=== PATIENT | male | born 1960 | race Caucasian/White ===

== ENCOUNTER → 2018-04-28 | Outpatient (CLI) | payer OTHER ==
[~2018-04-28] MED LIST: ANTIBIOTIC; HYDROCODONE-AP1 EAC6 PO; MEDROLDOSEPACK PO; NOHOMEMEDICATIONS; NORCO 5-325 TA1 EACH PO; ROBAXIN 750 MG750 M1 PO
== END ==
LOC: M.RAD 12:00
DX: J96.21 Acute and chronic respiratory failure with hypoxia (principal); G47.30 Sleep apnea, unspecified

== ENCOUNTER 2021-05-01 02:28 | Inpatient (IN) | payer OTHER ==
[~2021-05-01] VITALS: Ht 167.6 cm; Wt 77.1 kg
[2021-05-01 02:40] VITALS: BP 98/74
[2021-05-01 02:59] LABS: ABSOLUTE EOSINOPHILS 0.2 thou/uL (0.0-0.7); ABSOLUTE LYMPHOCYTES 1.1 thou/uL (0.8-5.3); ABSOLUTE MONOCYTES 0.8 thou/uL (0.0-1.2); BASOPHILS 0.2 %; EOSINOPHILS 2.1 %; HEMATOCRIT 37.8 % (42.0-52.0); LYMPHOCYTES 11.6 %; MCH 25.2 pg (26.0-34.0); MCHC 31.7 g/dL (28.0-37.0); MCV 79.6 fL (80.0-100.0); MONOCYTES 8.5 %; MPV 7.7 fl. (7.2-11.1); NUCLEATED RBCS 0 /100WBC; PLATELET COUNT* 329 thou/uL (150-400); POLYS 77.6 %; RBC 4.75 mil/uL (4.50-6.00); RDW-CV 17.4 % (10.5-14.5); WBC 9.1 thou/uL (4.0-11.0)
[2021-05-01 03:02] LABS: CALCIUM 8.2 mg/dL (8.5-10.1); CREATININE 1.2 mg/dL (0.6-1.3); POTASSIUM 3.8 mmol/L (3.5-5.1)
[2021-05-01 03:13] LABS: ALBUMIN 3.3 g/dL (3.4-5.0); TOTAL BILIRUBIN 0.5 mg/dL (<0.1-1.0); TOTAL PROTEIN 6.5 g/dL (6.4-8.2)
[2021-05-01 05:46] LABS: URINE BILIRUBIN NEGATIVE (Negative); URINE BLOOD NEGATIVE (Negative); URINE CLARITY CLEAR; URINE COLOR STRAW; URINE GLUCOSE-RANDOM NEGATIVE (Negative); URINE KETONES NEGATIVE (Negative); URINE LEUKOCYTES-REFLEX NEGATIVE (Negative); URINE NITRITE-REFLEX NEGATIVE (Negative); URINE PROTEIN NEGATIVE (Negative); URINE UROBILINOGEN 0.2 E.U./dl (0.2-1.0)
[2021-05-01 05:54] LABS: AMP/METHAMP Negative (Negative); BARBITURATES Negative (Negative); BENZODIAZEPINES Negative (Negative); COCAINE Negative (Negative); METHADONE Negative (Negative); OPIATES Negative (Negative); PCP Negative (Negative); THC POSITIVE (Negative)
[2021-05-01 09:58] LABS: CHOLESTEROL 153 mg/dL (<200); HDL CHOLESTEROL 38 mg/dL (>40); LDL CHOLESTEROL 105 mg/dL (<100); TRIGLYCERIDE 50 mg/dL (<150); VLDL 10 mg/dL (<40)
[2021-05-01 09:59] LABS: SERUM ASSESSMENT Clear
[2021-05-01 10:52] VITALS: BP 103/79
[2021-05-01 15:00] VITALS: BP 103/60
[2021-05-01 15:25] LABS: CALCIUM 8.4 mg/dL (8.5-10.1); CREATININE 1.1 mg/dL (0.6-1.3)
--- NOTE | 2021-05-01 15:53 | 2DMMODE ---
[place] [address] 2 D/M-MODE ECHOCARDIOGRAM Name: JOSLYNJAMESKINGSLEY Holt Room: 170-9 ADM IN [facility].#: [id number] Admission: 05/01/21 Attend Phys: Tereso Ahn Discharge: Date of : 64 Date of Service: 05/01/21 1553 Report #: [id number] THIS REPORT FOR: cc: Enedina Amaya,Enedina Mcbride,Dante Cormier MD [facility] ~ APPROVED REPORT Study performed: 05/01/2021 10:34:10 EXAM: Comprehensive 2D, Doppler, and color-flow Echocardiogram Patient Location: In-Patient Room #: er Status: routine BSA: 1.87 HR: 102 bpm BP: 112/85 mmHg Rhythm: NSR Other Information Study Quality: Good Indications Dyspnea 2D Dimensions IVSd: 12.78 (7-11mm) LVOT Diam: 19.72 (18-24mm) LVDd: 62.47 mm PWd: 10.55 (7-11mm) Ascending Ao: 30.45 (22-36mm) LVDs: 50.64 (25-40mm) Aortic Root: 32.75 mm Volumes Left Atrial Volume (Systole) LA ESV Index: 67.10 mL/m2 Aortic Valve AoV Peak Jaspreet.: 1.20 m/s AO Peak Gr.: 5.74 mmHg LVOT Max P.81 mmHg AO Mean Gr.: 2.91 mmHg LVOT Mean P.89 mmHg LVOT Max V: 0.98 m/s AO V2 VTI: 14.79 cm LVOT Mean V: 0.64 m/s YOANA (VTI): 2.56 cm2 LVOT V1 VTI: 12.38 [place] [address] 2 D/M-MODE ECHOCARDIOGRAM Name: DON JORGENSEN Room: [address] IN [facility]#: [id number] Admission: 05/01/21 Attend Phys: Tereso Ahn Discharge: Date of : 64 Date of Service: 05/01/21 1553 Report #: [id number] Mitral Valve E/A Ratio: 0.24 MV E Max Jaspreet.: 0.39 m/s Pulmonary Valve PV Peak Jaspreet.: 0.76 m/s PV Peak Gr.: 2.33 mmHg Tricuspid Valve RAP Estimate: 5.00 mmHg TR Peak Gr.: 41.65 mmHg RVSP: 46.00 mmHg PA Pressure: 46.00 mmHg Left Ventricle Left ventricle is mildly dilated. There is global hypokinesis of the left ventricle. There is normal left ventricular wall thickness. Left ventricular ejection fraction is severely decreased. LVEF is 25%. Grade I - abnormal relaxation pattern. Right Ventricle The right ventricle is normal size. The right ventricular systolic function is normal. Atria Left atrium is moderately dilated. The right atrium size is normal. Aortic Valve The aortic valve is normal in structure. No aortic regurgitation is present. There is no aortic valvular stenosis. Mitral Valve The mitral valve is normal in structure. Mild to moderate mitral regurgitation. No evidence of mitral valve stenosis. Tricuspid Valve The tricuspid valve is normal in structure. Mild tricuspid regurgitation. Moderate pulmonary hypertension. Pulmonic Valve The pulmonary valve is normal in structure. There is no pulmonic valvular regurgitation. Great Vessels The aortic root is normal in size. IVC is normal in size and collapses >50% [place] [address] 2 D/M-MODE ECHOCARDIOGRAM Name: DON JORGENSEN Room: [address] IN [facility].#: [id number] Admission: 05/01/21 Attend Phys: Tereso Ahn Discharge: Date of : 64 Date of Service: 05/01/21 1553 Report #: [id number] Pericardium There is no pericardial effusion. <Conclusion> Left ventricle is mildly dilated. There is normal left ventricular wall thickness. Left ventricular ejection fraction is severely decreased. LVEF is 25%. Grade I - abnormal relaxation pattern. The right ventricle is normal size. Left atrium is moderately dilated. The right atrium size is normal. The aortic valve is normal in structure. The mitral valve is normal in structure. Mild to moderate mitral regurgitation. The tricuspid valve is normal in structure. Mild tricuspid regurgitation. Moderate pulmonary hypertension. IVC is normal in size and collapses >50% with inspiration. There is no pericardial effusion. There is global hypokinesis of the left ventricle. <ELECTRONICALLY SIGNED> By: aDnte Johnson MD, FACC 05/01/21 1553 1553 1553 Dante Johnson MD, FACC /INF
--- NOTE | 2021-05-01 17:08 | EKG ---
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[place] : 1960 Requested By: Lucero Ponce Order Number: [id number] MD: Dante Johnson Measurements Intervals [place] Rate: 106 P: [place]: QRS: -29 QRSD: 187 T: 111 QT: 475 QTc: 631 Interpretive Statements Wide QRS tachycardia which is probably supraventricular in origin with left bundle branch block Left bundle branch block No previous ECG available for comparison Electronically Signed On 05-01-2021 17:08:02 CDT by Dante Johnson [email or web address] <ELECTRONICALLY SIGNED> By: Dante Johnson MD, [facility] 05/01/21 1708 0231 0231 Dante Johnson MD, [facility] /EPI
--- NOTE | 2021-05-01 17:58 | NUR ---
PT STATES HE FEEL LIKE HE IS NOT DOING ANY GOOD STAYING IN THE SAME BED AND WANTS TTO LEAVE EAND GO HOME, WANTS TO SPEAK TO HIS DOCTOR.
[2021-05-01 19:00] VITALS: BP 110/65
[2021-05-01 23:00] VITALS: BP 98/50
[2021-05-02] VITALS (7 sets, daily range): BP systolic 87–116; BP diastolic 50–84
[2021-05-02 03:53] LABS: HEMATOCRIT 39.5 % (42.0-52.0); HEMOGLOBIN 12.5 gm/dL (14.0-18.0); MCHC 31.5 g/dL (28.0-37.0); MCV 79.2 fL (80.0-100.0); MPV 7.8 fl. (7.2-11.1); RBC 4.99 mil/uL (4.50-6.00); RDW-CV 16.9 % (10.5-14.5); WBC 13.4 thou/uL (4.0-11.0)
[2021-05-02 04:02] LABS: CALCIUM 8.5 mg/dL (8.5-10.1); CREATININE 1.3 mg/dL (0.6-1.3); POTASSIUM 3.6 mmol/L (3.5-5.1)
--- NOTE | 2021-05-02 16:49 | NUR ---
PT ADMITTED TO FLOOR. PT VERY DROWSY. AT BEDSIDE. HEART MONITOR PLACED. ASSESSMENT COMPLETED AND CHARTED. PHYSICIAN MESSGAED REGARDING BP AND ORDERS GIVEN. FALL RISK PRECAUTIONS IN PLACE. CALL LIGHT WITHIN REACH.
--- NOTE | 2021-05-02 17:18 | NUR ---
PT REMAINED ALERT AND ORIENTED AND DROWSY. AT BEDSIDE. FALL RISK PRECAUIONS IN PLACE. HEART MONITORED. HOURLY ROUNDING COMPLETED. CALL LIGHT WITHIN REACH.
[2021-05-03 00:03] VITALS: BP 140/89
[2021-05-03 03:38] VITALS: BP 108/75
--- NOTE | 2021-05-03 04:06 | NUR ---
PT A&O X 4. ON 2L BY NC, CPAP HS. MEDS GIVEN OS ORDERED. ATIVAN GIVEN X 1 PER PT REQUEST. NO C/O PAIN. PT SLEPT MOST OF THE NIGHT. CALL LIGHT WITHIN REACH. WILL CONTINUE TO MONITOR.
[2021-05-03 04:34] LABS: HEMATOCRIT 41.9 % (42.0-52.0); HEMOGLOBIN 13.2 gm/dL (14.0-18.0); MCHC 31.5 g/dL (28.0-37.0); MCV 79.4 fL (80.0-100.0); MPV 7.8 fl. (7.2-11.1); RBC 5.28 mil/uL (4.50-6.00); WBC 8.6 thou/uL (4.0-11.0)
[2021-05-03 05:03] LABS: ALBUMIN 3.2 g/dL (3.4-5.0); CALCIUM 8.6 mg/dL (8.5-10.1); CREATININE 1.2 mg/dL (0.6-1.3); POTASSIUM 3.8 mmol/L (3.5-5.1); TOTAL BILIRUBIN 0.5 mg/dL (<0.1-1.0); TOTAL PROTEIN 6.7 g/dL (6.4-8.2)
[2021-05-03 08:04] VITALS: BP 104/62
[2021-05-03] MEDS ORDERED: METOPROLOL SUCC25 M1 PO (08:53)
[2021-05-03] MEDS ORDERED: ASA81BEC PO (08:53)
[2021-05-03] MEDS ORDERED: POTASSIUM20 PO (08:53)
[2021-05-03] MEDS ORDERED: FUROSEMIDE 40 M40 MG PO (08:53)
[2021-05-03] MEDS ORDERED: COZAAR 50 MG TA50 M1 PO (08:53)
--- NOTE | 2021-05-03 09:25 | NUR ---
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
--- NOTE | 2021-05-03 09:46 | NUR ---
Admission Assessment Admitted from home to ER Mental Status upon admission Alert & Oriented x 3 Living Arrangements: House Lives with: or they live with patient spouse adult child x1 Support system: Name Phone number Relationship Can patient return to prior living arrangements? Yes Activities of daily living: Independent Assistive device: No Prior resource use: None Spoke with pt, in room. Pt asked for Cpap to be serviced, can't remember how long he has had it, its been long time , and would like new mask. There is no company medical information officer machine and they can not remember who provided the equipment. Notified Dr PENA if discharging today please order Cpap follow up. Contacted [employer] and they service [employer] machines. Will fax referral once order obtained.
[2021-05-03 11:44] VITALS: BP 104/62
[2021-05-03 12:10] VITALS: BP 104/62
--- NOTE | 2021-05-03 14:46 | NUR ---
Case and plan of care reviewed with MD each weekday during patient's length of stay. Continue plan of care per MD orders for current dx. Plans is for discharge today. Spoke to patient and requested new cpap mask, doesn't remember what company obtained from since it has been many years ago, no company label on machine. Notified Dr PENA of need for order. Called [employer] and asked if service [employer] machines and they do. FAxed discharge orders and [employer] form to them at [phone].Notified pt they would be contacting him.
== END 2021-05-03 12:11 | disposition home or self-care (01) | DRG 292 ==
LOC: M.ERS 02:28 → M.TBA-ER 06:17 → M.2W 05-02 16:10
PROVIDERS: Family Medicine; Personal Emergency Response Attendant; Registered Nurse; ADMIT Internal Medicine; ATTEND Internal Medicine
PROC: 5A09357 Assistance with Respiratory Ventilation, Less than 24 Consecutive Hours, Continuous Positive Airway Pressure (ICD-10-PCS; principal; 2021-05-02)
DX: I50.43 Acute on chronic combined systolic (congestive) and diastolic (congestive) heart failure (principal); E44.1 Mild protein-calorie malnutrition; J91.8 Pleural effusion in other conditions classified elsewhere; I42.9 Cardiomyopathy, unspecified; J96.11 Chronic respiratory failure with hypoxia; G47.33 Obstructive sleep apnea (adult) (pediatric); G89.29 Other chronic pain; I27.20 Pulmonary hypertension, unspecified; M54.9 Dorsalgia, unspecified; F17.200 Nicotine dependence, unspecified, uncomplicated; R79.89 Other specified abnormal findings of blood chemistry; Z20.822 Contact with and (suspected) exposure to COVID-19; Z82.49 Family history of ischemic heart disease and other diseases of the circulatory system; Z86.73 Personal history of transient ischemic attack (TIA), and cerebral infarction without residual deficits; Z79.899 Other long term (current) drug therapy; Z68.27 Body mass index [BMI] 27.0-27.9, adult; Z91.19 Patient's noncompliance with other medical treatment and regimen

== ENCOUNTER → 2021-05-24 | Outpatient (CLI) | payer OTHER ==
[~2021-05-24] MED LIST changes: +ASA81BEC PO; +COZAAR 50 MG TA50 M1 PO; +FUROSEMIDE 40 M40 MG PO; +METOPROLOL SUCC25 M1 PO; +POTASSIUM20 PO
[2021-05-24 12:02] LABS: ALBUMIN 3.9 g/dL (3.4-5.0); CALCIUM 8.8 mg/dL (8.5-10.1); CREATININE 1.3 mg/dL (0.6-1.3); POTASSIUM 4.4 mmol/L (3.5-5.1); TOTAL BILIRUBIN 0.3 mg/dL (<0.1-1.0); TOTAL PROTEIN 6.9 g/dL (6.4-8.2)
== END ==
LOC: M.LAB 11:16
PROVIDERS: ATTEND Registered Nurse
DX: I42.9 Cardiomyopathy, unspecified (principal)

== ENCOUNTER → 2021-06-23 | Outpatient (CLI) | payer OTHER ==
--- NOTE | 2021-06-23 15:40 | CARDNUC ---
[place] [address] CARDIAC NUCLEAR IMAGING REPORT Name: DON JORGENSEN Room: [facility]#: [id number] Admission: 06/23/21 Attend Phys: Salazar Romo, Discharge: Date of : 64 Date of Service: 06/23/21 1540 Report #: [id number] THIS REPORT FOR: cc: Enedina Amaya Linda J. DO Park,Madi Hastings MD ~ APPROVED REPORT Study performed: 06/23/2021 14:07:55 Exam: Nuclear Stress Test Indication: Cardiomyopathy Stress Tech: YOLIE KOHLI Stress Nurse: Melisa Boykin RN NM Tech:PETTY Antonio Ht: 5 ft 6 in Wt: 165 lbs BSA: 1.84 m2 BMI: 26.62 Medical History Medical History: Cardiomyopathy, HTN Medications: ASA-81, FUROSEMIDE, LOSARTAN, METOPROLOL Allergies: No known drug allergies Cardiac Risk Factors: Age, HTN Exercise History: Sedentary Meds Held (24 hrs): METOPROLOL Stress Test Details Stress Test: Pharmacologic stress testing performed using 0.4 mg of regadenoson per 5 mL given IV over 10 seconds. Reason for pharmacologic stress test: LBBB. HR Resting HR: 98 bpm Max Heart Rate (APMHR): 162 bpm Max HR Achieved: 107 bpm Target HR (85% APMHR): 137 bpm % of APMHR: 66 Recovery HR: 102 bpm BP Resting BP: 116/66 mmHg Max BP: 140/50 mmHg ECG Resting ECG: Sinus Rhythm, [place] [address] CARDIAC NUCLEAR IMAGING REPORT Name: JOSLYNDON CHANEYIP Room: [facility]#: [id number] Admission: 06/23/21 Attend Phys: Salazar Romo, Discharge: Date of : 64 Date of Service: 06/23/21 1540 Report #: [id number] Stress ECG: Sinus Rhythm, LBBB ST Change: Nondiagnostic LBBB Clinical Reason for Termination: Completed protocol NM EXAM: Myocardial Perfusion REST/STRESS Imaging Protocol: Rest Tc-99m/Stress Tc-99m 1 day Resting Data Rest SPECT myocardial perfusion imaging was performed in supine position 30 minutes following the intravenous injection of 12.0 mCi of Tc-99m Sestamibi. Time of rest injection: 1300 Date: 06/23/2021 The images were gated to evaluate regional wall motion and calculate left ventricular ejection fraction. Administration Route: IV Pharmacologic Stress Pharmacologic stress test was performed by injecting Regadenoson 0.4 mg IV push followed by the intravenous injection of 34.7 mCi of Tc-99m Sestamibi. Time of stress injection: 1415 Date: 06/23/2021 Administration Route: IV Gated Stress SPECT was performed 40 minutes after stress injection. The images were gated to evaluate regional wall motion and calculate left ventricular ejection fraction. Study Quality Study: Good Study Data Post stress, the left ventricular ejection was 25%.. SSS: 7 SRS: 13 SDS: 1 TID = 1.08. Perfusion There is a large area of moderately reduced uptake in the entire segment of the inferior wall which is seen on the stress images as well as the resting images. This area is hypokinetic and is most consistent with [place] [address] CARDIAC NUCLEAR IMAGING REPORT Name: JOSLYNJAMESKINGSLEY GARCIA Room: [facility]#: [id number] Admission: 06/23/21 Attend Phys: Salazar Romo, Discharge: Date of : 64 Date of Service: 06/23/211539 Report #: [id number] Severely decreased left ventricular systolic function. Nuclear Conclusion ECG Findings: non-diagnostic Clinical Findings: non-diagnostic Nuclear Findings: positive for infarct Exercise Capacity: not assessed Left Ventricular Function: abnormal There is a fixed inferior wall defect, unable to rule out infarct. The left ventricle is dilated with severe LV dysfunction. <ELECTRONICALLY SIGNED> By: Madi Bustillos MD 06/23/21 154 39 1540 Madi Bustillos MD /[place]
== END ==
LOC: M.CRD 06-06 12:24 → M.ULTRA 11:30
PROVIDERS: ATTEND Internal Medicine Cardiovascular Disease
DX: I65.22 Occlusion and stenosis of left carotid artery (principal); I77.1 Stricture of artery; I42.9 Cardiomyopathy, unspecified

== ENCOUNTER 2021-07-05 14:36 | Inpatient (IN) | payer OTHER ==
[~2021-07-05] VITALS: Ht 167.6 cm; Wt 73.0 kg
[2021-07-05 14:44] VITALS: BP 136/90
[2021-07-05 15:27] LABS: ABSOLUTE EOSINOPHILS 0.1 thou/uL (0.0-0.7); ABSOLUTE LYMPHOCYTES 1.2 thou/uL (0.8-5.3); ABSOLUTE MONOCYTES 0.8 thou/uL (0.0-1.2); ABSOLUTE NEUTROPHILS 6.2 thou/uL (1.6-8.1); BASOPHILS 0.2 %; EOSINOPHILS 0.8 %; HEMATOCRIT 44.2 % (42.0-52.0); HEMOGLOBIN 14.7 gm/dL (14.0-18.0); LYMPHOCYTES 14.5 %; MCH 26.7 pg (26.0-34.0); MCHC 33.4 g/dL (28.0-37.0); MPV 7.6 fl. (7.2-11.1); NUCLEATED RBCS 0 /100WBC; PLATELET COUNT* 300 thou/uL (150-400); POLYS 74.5 %; RBC 5.52 mil/uL (4.50-6.00); RDW-CV 17.3 % (10.5-14.5); WBC 8.3 thou/uL (4.0-11.0)
[2021-07-05 15:34] LABS: CALCIUM 9.4 mg/dL (8.5-10.1); CREATININE 1.2 mg/dL (0.6-1.3); POTASSIUM 4.5 mmol/L (3.5-5.1)
[2021-07-05 15:37] LABS: APTT 38.4 Seconds (25.0-31.3); INR 1.1; PROTIME 11.4 Seconds (9.20-11.50)
[2021-07-05 15:48] LABS: ALBUMIN 3.7 g/dL (3.4-5.0); MAGNESIUM 2.2 mg/dL (1.8-2.4); TOTAL BILIRUBIN 0.4 mg/dL (<0.1-1.0); TOTAL PROTEIN 7.6 g/dL (6.4-8.2)
--- NOTE | 2021-07-05 15:48 | EKG ---
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
[2021-07-05 22:20] VITALS: BP 101/67
[2021-07-05 22:23] VITALS: BP 105/69
[2021-07-06 04:00] VITALS: BP 94/64
[2021-07-06] MEDS ORDERED: ELIQUIS5 MG PO (12:18)
[2021-07-06] MEDS ORDERED: ATORVASTATIN CA20 MG PO (12:19)
[2021-07-06] MEDS ORDERED: PACERONE 200 M200 M1 PO (12:19)
[2021-07-06] MEDS ORDERED: SPIRONOLACTONE25 MG PO (12:20)
[2021-07-06 13:13] VITALS: BP 104/69
[2021-07-06 13:30] VITALS: BP 104/69
--- NOTE | 2021-07-06 14:19 | EKG ---
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
[2021-07-06 16:12] VITALS: BP 104/69
== END 2021-07-06 13:35 | disposition home or self-care (01) | DRG 309 ==
LOC: M.ERS 14:36 → M.TBA-ER 15:26 → M.ORTHSURG 15:26
PROVIDERS: Family Medicine; ADMIT Internal Medicine Cardiovascular Disease; ATTEND Internal Medicine Cardiovascular Disease
DX: I48.92 Unspecified atrial flutter (principal); D68.69 Other thrombophilia; I25.5 Ischemic cardiomyopathy; H54.61 Unqualified visual loss, right eye, normal vision left eye; J30.2 Other seasonal allergic rhinitis; F17.210 Nicotine dependence, cigarettes, uncomplicated; I25.10 Atherosclerotic heart disease of native coronary artery without angina pectoris; E78.5 Hyperlipidemia, unspecified; I70.8 Atherosclerosis of other arteries; Z20.822 Contact with and (suspected) exposure to COVID-19; G47.33 Obstructive sleep apnea (adult) (pediatric); Z86.73 Personal history of transient ischemic attack (TIA), and cerebral infarction without residual deficits; Z79.82 Long term (current) use of aspirin; Z79.899 Other long term (current) drug therapy

== ENCOUNTER 2021-07-30 07:05 | Emergency (ER) | payer OTHER ==
[~2021-07-30] VITALS: Ht 167.6 cm; Wt 75.3 kg
[~2021-07-30 07:05] MED LIST changes: +ATORVASTATIN CA20 MG PO; +ELIQUIS5 MG PO; +PACERONE 200 M200 M1 PO; +SPIRONOLACTONE25 MG PO
[2021-07-30] MEDS ORDERED: BUPROPION HCL100 MG PO (07:18)
[2021-07-30 08:01] LABS: CALCIUM 8.6 mg/dL (8.5-10.1); CREATININE 1.2 mg/dL (0.6-1.3); POTASSIUM 4.7 mmol/L (3.5-5.1)
[2021-07-30] MEDS ORDERED: CEPHALEXIN500 MG PO (09:10)
[2021-07-30 09:30] VITALS: BP 122/72
== END 2021-07-30 09:30 | disposition home or self-care (01) ==
LOC: M.ERS 07:05
PROVIDERS: Emergency Medicine Emergency Medical Services
DX: L03.213 Periorbital cellulitis (principal); Z86.73 Personal history of transient ischemic attack (TIA), and cerebral infarction without residual deficits; Z98.890 Other specified postprocedural states; Z79.899 Other long term (current) drug therapy; Z79.82 Long term (current) use of aspirin; Z91.048 Other nonmedicinal substance allergy status

== ENCOUNTER 2021-08-16 17:28 | Observation (INO) | payer OTHER ==
[~2021-08-16] VITALS: Ht 167.6 cm; Wt 78.9 kg
[~2021-08-16 17:28] MED LIST changes: +BUPROPION HCL100 MG PO; +CEPHALEXIN500 MG PO
[2021-08-16 17:29] VITALS: BP 137/86
[2021-08-16 18:01] LABS: ABSOLUTE EOSINOPHILS 0.2 thou/uL (0.0-0.7); ABSOLUTE LYMPHOCYTES 1.4 thou/uL (0.8-5.3); ABSOLUTE MONOCYTES 0.9 thou/uL (0.0-1.2); ABSOLUTE NEUTROPHILS 6.6 thou/uL (1.6-8.1); BASOPHILS 0.4 %; EOSINOPHILS 2.3 %; HEMATOCRIT 41.8 % (42.0-52.0); HEMOGLOBIN 13.7 gm/dL (14.0-18.0); LYMPHOCYTES 15.6 %; MCH 27.2 pg (26.0-34.0); MCHC 32.7 g/dL (28.0-37.0); MCV 83.2 fL (80.0-100.0); MONOCYTES 9.6 %; MPV 7.2 fl. (7.2-11.1); NUCLEATED RBCS 0 /100WBC; PLATELET COUNT* 328 thou/uL (150-400); POLYS 72.1 %; RBC 5.03 mil/uL (4.50-6.00); RDW-CV 17.9 % (10.5-14.5); WBC 9.2 thou/uL (4.0-11.0)
[2021-08-16 18:09] LABS: CALCIUM 9.1 mg/dL (8.5-10.1); CREATININE 1.5 mg/dL (0.6-1.3); POTASSIUM 4.3 mmol/L (3.5-5.1)
[2021-08-16 18:14] LABS: ALBUMIN 3.8 g/dL (3.4-5.0); MAGNESIUM 2.3 mg/dL (1.8-2.4); TOTAL BILIRUBIN 0.3 mg/dL (<0.1-1.0); TOTAL PROTEIN 7.6 g/dL (6.4-8.2)
--- NOTE | 2021-08-16 18:25 | EKG ---
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[facility] : 1960 Requested By: Vance Fontenot Order Number: [id number] MD: Damian Mata Measurements Intervals [place] Rate: 83 P: 73 DE: 205 QRS: -18 QRSD: 206 T: 138 QT: 482 QTc: 567 Interpretive Statements Sinus rhythm Atrial sensed and ventricular paced rhythm Baseline wander in lead(s) I,II,aVR,aVL,V4 Compared to ECG 07/06/2021 08:45:03 No significant changes Electronically Signed On 08-16-2021 18:25:09 [employer] by Damian Mata [email or web address] <ELECTRONICALLY SIGNED> By: Damian Mata MD, [facility] 08/16/21 1825 1728 1728 Damian Mata MD, [facility] /EPI
[2021-08-16 21:03] VITALS: BP 110/73
[2021-08-17] VITALS (7 sets, daily range): BP systolic 101–117; BP diastolic 57–80
[2021-08-17 11:06] LABS: CHOLESTEROL 162 mg/dL (<200); HDL CHOLESTEROL 61 mg/dL (>40); LDL CHOLESTEROL 91 mg/dL (<100); TC:HDL 2.7 Ratio (Not establshd); TRIGLYCERIDE 50 mg/dL (<150); VLDL 10 mg/dL (<40)
[2021-08-17 11:07] LABS: SERUM ASSESSMENT Clear
== END 2021-08-17 17:24 | disposition home or self-care (01) ==
LOC: M.ERS 17:28 → M.TBA-ER 18:38
PROVIDERS: Emergency Medicine Emergency Medical Services; Registered Nurse; ADMIT Internal Medicine; ATTEND Internal Medicine
DX: R07.89 Other chest pain (principal); Z20.822 Contact with and (suspected) exposure to COVID-19; I25.10 Atherosclerotic heart disease of native coronary artery without angina pectoris; I48.92 Unspecified atrial flutter; I25.5 Ischemic cardiomyopathy; I44.7 Left bundle-branch block, unspecified; G47.33 Obstructive sleep apnea (adult) (pediatric); E78.5 Hyperlipidemia, unspecified; I77.1 Stricture of artery; I50.9 Heart failure, unspecified; I25.2 Old myocardial infarction; Z86.73 Personal history of transient ischemic attack (TIA), and cerebral infarction without residual deficits; Z79.899 Other long term (current) drug therapy

== ENCOUNTER → 2021-08-24 | Outpatient (CLI) | payer OTHER | LOC: M.INT 07-20 13:00 | PROVIDERS: ATTEND Registered Nurse | DX: E04.2 Nontoxic multinodular goiter (principal); I70.8 Atherosclerosis of other arteries; I51.7 Cardiomegaly ==

== ENCOUNTER → 2021-08-25 | Outpatient (CLI) | payer OTHER ==
[~2021-08-25] VITALS: Ht 167.6 cm; Wt 78.9 kg
[2021-08-25 14:38] VITALS: BP 118/64
== END ==
LOC: M.INT 14:00
PROVIDERS: ATTEND Registered Nurse
DX: I70.8 Atherosclerosis of other arteries (principal)